=== PATIENT | female | born 1985 | race Caucasian/White ===

== ENCOUNTER 2024-04-08 17:19 | Emergency (ER) | payer BC, SELFPAY ==
[2024-04-08] VITALS (29 sets, daily range): BP systolic 82–208; BP diastolic 49–155; PULSE 66–112; RESP 15–34; TEMP 36.7–37.7; O2SAT 95–100; BMI 39.1; BMI 38.7
[2024-04-08] MEDS: LORazepam 2MG/ML VIAL 4 MG IV ×2 (17:18→17:25)
[2024-04-08] MEDS: levETIRAcetam 2,000 MG in 0.9 % SODIUM CHLORIDE 100 ML 240 MG IV (17:20)
--- NOTE | 2024-04-08 17:22 | CT_ITS ---
PROCEDURE INFORMATION: Exam: CT Head Without Contrast Exam date and time: 04/08/2024 5:44 PM Age: 39 years old Clinical indication: Other: Seizure TECHNIQUE: Imaging protocol: Computed tomography of the head without contrast. Radiation optimization: All CT scans at this facility use at least one of these dose optimization techniques: automated exposure control; mA and/or kV adjustment per patient size (includes targeted exams where dose is matched to clinical indication); or iterative reconstruction. COMPARISON: No relevant prior studies available. FINDINGS: Brain: No hemorrhage. Unremarkable white matter. No mass effect. Cerebral ventricles: No ventriculomegaly. Paranasal sinuses: Visualized sinuses are unremarkable. No fluid levels. Mastoid air cells: Visualized mastoid air cells are well aerated. Bones: Unremarkable. No acute fracture. Soft tissues: Unremarkable. IMPRESSION: No acute intracranial findings.
--- NOTE | 2024-04-08 17:22 | XR_ITS ---
PROCEDURE INFORMATION: Exam: XR Chest Exam date and time: 04/08/2024 5:52 PM Age: 39 years old Clinical indication: Other: Seizure TECHNIQUE: Imaging protocol: Radiologic exam of the chest. Views: 1 view. COMPARISON: No relevant prior studies available. FINDINGS: Lungs: No consolidation. Pleural spaces: No pleural effusion. No pneumothorax. Heart/Mediastinum: No cardiomegaly. Bones/joints: Unremarkable. IMPRESSION: No acute pulmonary findings.
--- NOTE | 2024-04-08 17:35 | HMH.EDGENADL ---
Discharge Plan Disposition Patient Disposition: Xfer Other Condition: Critical Referrals Follow up/Referrals: Lobito Simental [Primary Care Provider] - See instructions Clinical Impressions Clinical Impression: Status epilepticus Instructions Patient Instructions: DI for Seizure Disorder -- Adult, DI for Seizure (Not Epilepsy/Seizure Disorder), DI for Seizure Disorder -- Child Discharge ED Provider: Gabe Georges Adult HPI General Chief complaint: Seizure Stated complaint: Seizures Time Seen by Provider: 04/08/24 17:22 History of Present Illness HPI narrative: 39-year-old female with past medical history significant for epileptic seizures and pseudoseizures, reports history of brain lesions, presents today for evaluation concerning seizure activity onset prior to arrival. Patient reportedly had 3 seizures [id number] lasting less than 1 minute while she was at a restaurant eating. EMS reports that she had 3 more seizures lasting less than 1 minute with return to baseline between 1 seizure episode. They gave her 15 mg of Versed en route to ED. Patient seizing on arrival. History at this time difficult to obtain. Related Data Allergies Allergy/AdvReac Type Severity Reaction Status Date / Time No Known Allergies Allergy Verified 04/08/24 17:49 [facility] Disclaimer: The information contained in this section may have been updated after the patient was seen, as this information can be updated by other users. Social History Smoking Status: Never smoker alcohol intake: never current occupational status: employed Travel in the last 8 weeks: None ROS Obtained: Yes All systems reviewed & no additional complaints except as documented Physical Exam General General appearance: alert and in no apparent distress Head Head exam: atraumatic and normocephalic Eye Eye exam: Present normal appearance, PERRL and EOMI ENT ENT exam: Present normal oropharynx and mucous membranes moist Neck Neck exam: Present full ROM; Absent meningismus Respiratory Respiratory exam: Absent respiratory distress, wheezes, stridor or accessory muscle use Cardiovascular Cardiovascular exam: Present normal rhythm and tachycardia Abdominal Exam Abdominal exam: Present soft; Absent distention, tenderness, guarding, rebound or rigidity Neurological Exam Neurological exam: Present alert, oriented X3 and CN II-XII intact; Absent motor sensory deficit Psychiatric Psychiatric exam: Present normal affect and normal mood Skin Skin exam: Present warm and dry Medical Decision Making Medical Records Medical records reviewed: Yes I reviewed the patient's medical records. James Inquiry Pt receiving controlled substance: No James was queried for this patient: No Vital Signs: 06/22/24 17:30 04/08/24 17:59 04/08/24 18:08 Pulse Rate 112 H 108 H Pulse Rate [Left Radial] 94 H Respiratory Rate 34 H Blood Pressure 108/77 L 125/77 Blood Pressure [Right Arm] 93/62 L Blood Pressure Mean 86 88 Blood Pressure Mean [Right Arm] 72 02 Sat by Pulse Oximetry 99 97 97 Oxygen Delivery Method Nasal Cannula Oxygen Flow Rate (LPM) 2 04/08/24 18:16 04/08/24 18:28 04/08/24 18:31 Pulse Rate 90 106 H 97 H Pulse Rate [Left Radial] Respiratory Rate Blood Pressure 208/137 H 203/155 H 93/62 L Blood Pressure [Right Arm] Blood Pressure Mean 155 165 70 Blood Pressure Mean [Right Arm] 02 Sat by Pulse Oximetry 99 99 99 Oxygen Delivery Method Oxygen Flow Rate (LPM) 04/08/24 18:32 04/08/24 18:33 04/08/24 18:35 Pulse Rate 97 H 94 H 99 H Pulse Rate [Left Radial] Respiratory Rate Blood Pressure 91/59 L 95/65 L 93/60 L Blood Pressure [Right Arm] Blood Pressure Mean 72 74 70 Blood Pressure Mean [Right Arm] 02 Sat by Pulse Oximetry 99 99 99 Oxygen Delivery Method Oxygen Flow Rate (LPM) 04/08/24 18:40 04/08/24 18:45 04/08/24 18:50 Pulse Rate 89 89 83 Pulse Rate [Left Radial] Respiratory Rate Blood Pressure 96/67 L 95/65 L 97/70 L Blood Pressure [Right Arm] Blood Pressure Mean 75 74 77 Blood Pressure Mean [Right Arm] 02 Sat by Pulse Oximetry 99 99 99 Oxygen Delivery Method Oxygen Flow Rate (LPM) 04/08/24 18:55 04/08/24 19:01 04/08/24 19:05 Pulse Rate 85 82 84 Pulse Rate [Left Radial] Respiratory Rate Blood Pressure 91/65 L 99/64 L 84/55 L Blood Pressure [Right Arm] Blood Pressure Mean 70 73 64 Blood Pressure Mean [Right Arm] 02 Sat by Pulse Oximetry 99 99 99 Oxygen Delivery Method Oxygen Flow Rate (LPM) Lab Data Lab Results 04/08/24 17:22: Urine Color Yellow, Urine Appearance Clear, Urine pH 7.0, Ur Specific [place] <= 1.005, Urine Protein Negative, Urine Glucose (UA) Negative, Urine Ketones Negative, Urine Blood Negative, Urine Nitrate Negative, Urine Bilirubin Negative, Urine Urobilinogen 0.2, Ur Leukocyte Esterase Negative, Urine RBC None, Urine WBC None, Ur Squamous Epith Cells 3-5, Urine Bacteria None 04/08/24 17:38: WBC 10.7, RBC 4.76, Hgb 14.3, Hct 45.4, MCV 95.3, MCH 30.2, MCHC 31.6 L, RDW 14.8, Plt Count 346, MPV 9.7, Neut % (Auto) 65.2, Lymph % (Auto) 25.6, [place] % (Auto) 6.0, Eos % (Auto) 1.8, Baso % (Auto) 1.4, Neut # (Auto) 6.9, Lymph # (Auto) 2.7, [place] # (Auto) 0.6, Eos # (Auto) 0.2, Baso # (Auto) 0.2, Sodium 139, Potassium 3.2 L, Chloride 105, Carbon Dioxide 22, Anion Gap 15.2 H, BUN 3 L, Creatinine 0.70, Estimated Creat Clear 184, Estimated GFR 93, Est GFR ( Amer) 112, Glucose 116 H, Lactate 4.0 H, Calcium 8.6, Magnesium 1.8, Total Bilirubin 0.3, AST 28, ALT 31, Alkaline Phosphatase 98, Total Creatine Kinase 43, Total Protein 7.5, Albumin 4.4, Globulin 3.1, Albumin/Globulin Ratio 1.4, Lipase 90, Procalcitonin 0.054, Serum HCG, Qual Negative 04/08/24 17:52: VBG pH 7.37, VBG pCO2 36.6, VBG pO2 57.3 H, VBG HCO3 20.6 L, VBG Total CO2 21.8 L, VBG O2 Saturation 90.8 H, VBG Base Excess -4.7 L, VBG Lactic Acid 4.7 H 04/08/24 18:55: Urine Opiates Screen Negative, Urine Methadone Screen Negative, Ur Barbituates Screen Positive H, Ur Phencyclidine Scrn Negative, Ur Amphetamines Screen Negative, U Benzodiazepines Scrn Positive H, Urine Cocaine Screen Negative, U Marijuana (THC) Screen Negative 04/08/24 17:38 04/08/24 17:38 Orders (Tests/Meds): ED MEDICATIONS Generic Name Dose Route Start Last Admin Trade Name Cathie PRN Reason Stop Dose Admin Midazolam HCl 50 mg/ Sodium 50 mls @ 2.177 mls/hr 04/08/24 18:00 04/08/24 19:03 Chloride IV 05/08/24 17:59 0 mg/kg/hr .[id number] VASILIY 0 mls/hr Titration Protocol 0.02 MG/KG/HR Propofol 100 mls @ 6.532 mls/hr 04/08/24 18:47 04/08/24 19:05 Diprivan 10mg/Ml 100ml Bottle IV 05/08/24 18:46 66 mcg/kg/min .[id number] VASILIY 43.11 mls/hr Titration Protocol 10 MCG/KG/MIN Propofol 100 mls @ 39.19 mls/hr 04/08/24 19:30 04/08/24 19:39 Diprivan 10mg/Ml 100ml Bottle IV 05/08/24 19:29 66 mcg/kg/min .[id number] VASILIY 43.11 mls/hr Administration Protocol 60 MCG/KG/MIN Sodium Chloride 10 ml 04/08/24 17:25 Sodium Chloride 0.9% 10ml Vial IV 05/08/24 17:24 NEEDED PRN to Dilute Lorazepam inj Sodium Chloride 10 ml 04/08/24 18:42 Sodium Chloride 0.9% 10ml Vial IV 05/08/24 18:41 NEEDED PRN to Dilute Lorazepam inj Discontinued Medications Generic Name Dose Route Start Last Admin Trade Name Cathie PRN Reason Stop Dose Admin Etomidate 30 mg 04/08/24 18:05 04/08/24 18:13 Etomidate 40mg/20ml Vial IV 04/08/24 18:06 30 mg ONCE ONE Administration Levetiracetam 2,000 mg/ Sodium 120 mls @ 240 mls/hr 04/08/24 17:25 04/08/24 17:20 Chloride IV 04/08/24 17:26 240 mls/hr ONCE ONE Administration Lactated Ringer's 500 mls @ 999 mls/hr 04/08/24 17:34 04/08/24 18:38 Lactated Ringer's 1000 Ml Bag IV 04/08/24 18:04 999 mls/hr .Q31M ONE Administration Lorazepam 4 mg 04/08/24 17:25 04/08/24 17:18 Lorazepam 2mg/Ml Vial IV 04/08/24 17:26 4 mg ONCE ONE Administration Lorazepam 4 mg 04/08/24 17:25 04/08/24 17:25 Lorazepam 2mg/Ml Vial IV 04/08/24 17:26 4 mg ONCE ONE Administration Lorazepam 2 mg 04/08/24 18:42 04/08/24 18:00 Lorazepam 2mg/Ml Vial IV 04/08/24 18:43 2 mg ONCE ONE Administration Succinylcholine Chloride 150 mg 04/08/24 18:05 04/08/24 18:13 Succinylcholine 20mg/Ml 10 Ml Mdv IV 04/08/24 18:06 150 mg ONCE ONE Administration ORDERS Category Date Time Status CT head/brain wo con Stat Cat Scan 04/08/24 17:22 Completed CXR --portable [XR chest portable] Stat Exams 04/08/24 17:22 Completed CXR --portable [XR chest portable] Stat Exams 04/08/24 18:44 Completed CBC w/Auto Diff [Complete Blood Count Auto Diff] Stat Lab 04/08/24 17:38 Completed CK [Creatine Kinase] Stat Lab 04/08/24 17:38 Completed CMP [Comprehensive Metabolic Panel] Stat Lab 04/08/24 17:38 Completed Lactic Acid Stat Lab 04/08/24 17:38 Completed Levetiracetam (Keppra) Stat Lab 04/08/24 17:38 Received Lipase Stat Lab 04/08/24 17:38 Completed Magnesium Stat Lab 04/08/24 17:38 Completed Procalcitonin Stat Lab 04/08/24 17:38 Completed Serum [HCG Qualitative, Serum] Stat Lab 04/08/24 17:38 Completed UA [Urinalysis and Microscopic] Stat Lab 04/08/24 17:22 Completed UDS [Drug Screen,Urine] Stat Lab 04/08/24 18:55 Completed VBG [Venous Blood Gas] Stat RT 04/08/24 17:52 Completed Medical Decision Narrative: 39-year-old female with past medical history significant for epileptic seizures and pseudoseizures, reports history of brain lesions, presents today for evaluation concerning seizure activity onset prior to arrival. Patient reportedly had 3 seizures [id number] lasting less than 1 minute while she was at a restaurant eating. EMS reports that she had 3 more seizures lasting less than 1 minute with return to baseline between 1 seizure episode. They gave her 15 mg of Versed en route to ED. On assessment the patient was seizing on arrival. She was given 4 mg of Ativan. She did return to baseline and was able to talk to me and verbalized that she is on 2 g of Keppra twice daily, Lamictal 200 mg in the morning and 100 mg at night. She states that she has been taking her medications appropriately however she did miss 1 nighttime dose last week. She denied having any fevers, chills, chest pain, shortness of breath, nausea, vomiting, substance use or any other associated symptoms. Patient did began to seize again however she did return to baseline quickly and was able to converse. She went on to have another seizure lasting about 2 minutes with a short postictal period. She had been given a 2 g Keppra load and was also given another 4 mg of Ativan. Her chest was clear to auscultation bilaterally. Her abdomen was soft nondistended and nontender. She was tachycardic. Protecting her airway. At baseline after Keppra and another 4 mg of Ativan, able to converse. Differential diagnoses include not limited to status epilepticus, PNES, intracranial abnormality, electrolyte disturbance, infection, substance use, among others. An EKG was ordered and personally interpreted by me and was remarkable sinus tachycardia with a rate of 111 bpm. No ischemic changes. WBC today of 10.7. Hemoglobin stable at 14.3. VBG with no acidosis with pH of 7.37. Lactic acid of 4.7 on VBG. Potassium 3.2. Sodium 139. Procalcitonin 0.054. UDS with barbiturates and benzodiazepines. Urinalysis with no signs of infection. Chest x-ray with no signs of infection. Patient had multiple seizures while in the ED with desaturations down to 78% at the lowest. Initially placed patient on a midazolam drip however given that she continued to seize with vital changes decision was made to intubate patient to protect her airway. Propofol infusion was begun. I did speak with Dr. Solano at [facility] and discussed management in regards to the patient and he has spoken with neurology. Patient has been accepted to the medical ICU at . Procedures Intubation Mallampati Score:: Class II Time out performed: Yes sedative: Etomidate paralytic: Succinylcholine Laryngoscope: Marie (Mac 3) ET Tube Size: 7.5 ET Tube Uncuffed: No Tube Secured Depth (cm): 22 Tube Secured Location: lips Tube Placement Confirmation: visualized tube passing through cords and equal breath sounds bilaterally Patient Tolerated Procedure: well Intubation Complications: none Critical Care Critical Care Time Critical Care Time: Yes Attestation: On 04/08/24, the high probability of a clinically significant, sudden or life threatening deterioration of the following system(s) required my full and direct attention, intervention and personal management. The time I documented below is in addition to time spent performing reported procedures but includes the following listed in this critical care notation. Total Time Total Critical Care Time: 60
--- NOTE | 2024-04-08 17:44 | PC.NURSE ---
patient gone to CT at this time.
[2024-04-08 17:49] LABS: Basophils # 0.2 K/mm3 (0-0.2); Basophils % 1.4 % (0.1-2.0); Eosinophils # 0.2 K/mm3 (0.0-0.4); Eosinophils % 1.8 % (0.1-12.0); Hematocrit 45.4 % (37.0-47.0); Hemoglobin 14.3 g/dL (12.2-16.2); Lymphocytes # 2.7 K/mm3 (0.7-4.5); Lymphocytes % 25.6 % (10-50); Mean Corpuscular HGB Conc 31.6 g/dL (31.8-35.4); Mean Corpuscular Hemoglobin 30.2 pg (27.0-31.2); Mean Corpuscular Volume 95.3 fl (81-99); Mean Platelet Volume 9.7 fl (7.4-10.4); Monocytes # 0.6 K/mm3 (0.1-1.0); Neutrophils # 6.9 K/mm3 (1.8-7.8); Neutrophils % 65.2 % (37.0-80.0); Platelet Count 346 K/mm3 (142-424); Red Blood Count 4.76 M/mm3 (4.20-5.40); Red Cell Distribution Width 14.8 % (11.5-17.5); White Blood Count 10.7 K/mm3 (4.8-10.8)
[2024-04-08 17:55] LABS: Alanine Aminotransferase 31 U/L (12-78); Albumin Level 4.4 g/dl (3.5-5.0); Albumin/Globulin Ratio 1.4 (1.1-1.8); Alkaline Phosphatase 98 U/L (38-126); Anion Gap 15.2 mEq/L (5-15); Aspartate Amino Transferase 28 U/L (14-36); Bilirubin,Total 0.3 mg/dl (0.2-1.3); Blood Urea Nitrogen 3 mg/dl (7-17); Calcium 8.6 mg/dl (8.4-10.2); Carbon Dioxide 22 mmol/L (22.0-30.0); Chloride 105 mmol/L (98-107); Creatine Kinase 43 U/L (30-135); Creatinine Clearance Estimated 184 mL/min (50-200); Estimated Glomerular Filt Rate 93 ml/min (>60); GFR (African American) 112 ML/MIN (>60); Globulin 3.1 g/dL (1.3-3.2); Glucose 116 mg/dl (74-100); Lipase 90 U/L (23-300); Magnesium 1.8 mg/dl (1.6-2.3); Potassium 3.2 mmoL/L (3.5-5.1); Sodium 139 mmol/L (136-145); Total Protein,Serum 7.5 g/dl (6.3-8.2)
--- NOTE | 2024-04-08 17:56 | PC.NURSE ---
patient back in room at this time.
--- NOTE | 2024-04-08 17:56 | PC.NURSE ---
at bedside at this time
[2024-04-08 17:57] LABS: HCG Qualitative, Serum Negative (Negative)
[2024-04-08 17:59] LABS: VBG Base Excess -4.7 mmol/L (-2.4-2.3); VBG HCO3 20.6 mmol/L (23-30); VBG Oxygen Saturation 90.8 % (50-70); VBG PCO2 36.6 mmol/L (35-51); VBG PH 7.37 mmol/L (7.31-7.41); VBG PO2 57.3 mmol/L (28-40); VBG Total CO2 21.8 mmol/L (23-27)
[2024-04-08 18:00] LABS: Lactate Venous 4.7 mmol/L (0.4-2.0)
[2024-04-08] MEDS: MIDAZOLAM HCL/PF 50 MG in 0.9 % SODIUM CHLORIDE 40 ML 10.89 MG IV (18:00)
[2024-04-08] MEDS: LORazepam 2MG/ML VIAL 2 MG IV (18:00)
--- NOTE | 2024-04-08 18:00 | ECG_ITS ---
APPROVED REPORT Exam: Resting ECG HR:111 bpm ECG Measurements Heart Rate 111 AXES NV 131 P 42 QRSd 80 QRS 34 QT 321 T 30 QTc 387 Conclusion SINUS TACHYCARDIA ABNORMAL RHYTHM ECG UNCONFIRMED REPORT Electronically signed by : LUKE JACOBS, 04/09/2024 00:43:24
[2024-04-08 18:12] LABS: Procalcitonin 0.054 ng/mL (0.0-2.0)
[2024-04-08] MEDS: SUCCINYLCHOLINE 20MG/ML 10 ML MDV 150 MG IV (18:13)
[2024-04-08] MEDS: ETOMIDATE 40MG/20ML VIAL 30 MG IV (18:13)
[2024-04-08] MEDS: propofoL 100 ML 6.53 MG IV (18:20)
[2024-04-08] MEDS: LACTATED RINGERS 1000ML 500 ML 999 ML IV (18:38)
--- NOTE | 2024-04-08 18:44 | XR_ITS ---
PROCEDURE INFORMATION: Exam: XR Chest Exam date and time: 04/08/2024 6:20 PM Age: 39 years old Clinical indication: Device placement; Ett placement (vent status) TECHNIQUE: Imaging protocol: Radiologic exam of the chest. Views: 1 view. COMPARISON: CR XR CHEST PORTABLE 04/08/2024 5:52 PM FINDINGS: Tubes, catheters and devices: Endotracheal tube tip terminating 4 cm above the chad. Lungs: Hypoventilated lungs. No consolidation. Pleural spaces: No pleural effusion. No pneumothorax. Heart/Mediastinum: No cardiomegaly. Bones/joints: Unremarkable. IMPRESSION: Appropriately positioned endotracheal tube.
--- NOTE | 2024-04-08 18:46 | PC.NURSE ---
o/p with transfer center at this time.
[2024-04-08 18:58] LABS: Microscopic, Urine URINE MICROSCOPIC (MICROSCOPIC)
[2024-04-08 19:01] LABS: Appearance,Urine CLEAR (Clear); Bilirubin,Urine Negative (Negative); Blood, Urine Negative (Negative); Color,Urine YELLOW (Yellow); Glucose,Urine (UA) Negative (Negative); Ketones,Urine Negative (Negative); Leukocyte Esterase,Urine Negative (Negative); Nitrate,Urine Negative (Negative); Protein,Urine Negative (Negative); Specific Gravity, Urine <= 1.005 (1.005-1.030); Urobilinogen,Urine 0.2 EU/dl (0.2)
[2024-04-08 19:11] LABS: Barbiturates Screen,Urine Positive ng/ml (<200)
[2024-04-08 19:12] LABS: Amphetamine/Metha Screen,Urine Negative ng/ml (<1000); Benzodiazepines Screen,Urine Positive ng/ml (<200)
[2024-04-08 19:13] LABS: Cannabinoid Screen,Urine Negative ng/ml (<50)
[2024-04-08 19:14] LABS: Cocaine Screen,Urine Negative ng/ml (<300); Methadone Screen,Urine Negative ng/ml (<300)
[2024-04-08 19:15] LABS: Opiate Screen,Urine Negative ng/ml (<300); Phencyclidine Screen,Urine Negative ng/ml (<25)
[2024-04-08] MEDS: ACETAMINOPHEN 650MG SUPPOSITORY 650 MG RC (19:20)
--- NOTE | 2024-04-08 19:20 | PC.NURSE ---
NG tube placed to L nare @ 55. ETT 20 @ teeth. [place] catheter placed with clear yellow urine draining.
[2024-04-08] MEDS: propofoL 100 ML 43.11 MG IV ×2 (19:39→22:08)
--- NOTE | 2024-04-08 20:31 | PC.NURSE ---
Contacted [employer] in regards to transfer flight no helicopter available checking with [employer]
--- NOTE | 2024-04-08 20:55 | PC.NURSE ---
Report called to Terri HERNANDEZ at . Patient is going to [facility] [address] floor [place] [facility] Room 225. has been updated and we are waiting for air transport to arrive.
[2024-04-08 22:01] LABS: Reflex Lactic Add Lactic Reflex
--- NOTE | 2024-04-08 22:09 | PC.NURSE ---
report given to [employer] at bedside
[2024-04-11 17:37] LABS: Levetiracetam (Keppra) 46.5 ug/mL (10.0-40.0)
== END 2024-04-08 22:21 | disposition other institution (70) ==
PROVIDERS: Emergency Provider Emergency Medicine; PCP Family Medicine
DX: G40.901 Epilepsy, unspecified, not intractable, with status epilepticus (principal); E87.6 Hypokalemia; R00.0 Tachycardia, unspecified
CPT/HCPCS: 31500; 70450; 71045; 80053; 80177; 80307; 81001; 82550; 82803; 83605; 83690; 83735; 84145; 84703; 85025; 93005; 94002; 96365; 96366; 96375; 99291; J0330; J1953; J2060; J2250; J2704; J7120